=== PATIENT | male | born 1975 | race Caucasian/White ===

== ENCOUNTER 2017-10-08 19:25 | Emergency (ER) | payer BC ==
[2017-10-08 21:12] VITALS: BP 156/84
[2017-10-08] MEDS ORDERED: Cephalexin CAP* 500 MG PO ONE (21:22)
--- NOTE | 2017-10-08 21:30 | ED ---
Skin Complaint - HPI Summary HPI Summary: 42 yr old male with redness and pain to skin over left ankle area. He woke up Thursday morning and felt like he had been bitten on the anterior left ankle. He states the area has become more red. He has no lower leg, or thigh swelling or pain. No fever or chills. No trips anywhere recently. No significant family history. he is an RN and a professor training nurses. He has no pain bearing weight or with range of motion of the left ankle. - History of Current Complaint Chief Complaint: UCLowerExtremity Time Seen by Provider: 10/08/17 21:15 Stated Complaint: SKIN COMPLAINT Pain Intensity: 6 - Allergy/Home Medications Allergies/Adverse Reactions: Allergies Allergy/AdvReac Type Severity Reaction Status Date / Time No Known Allergies Allergy Verified 10/08/17 21:11 PMH/Surg Hx/FS Hx/Imm Hx Cardiovascular History: Reports: Hx Hypertension Infectious Disease History: No Infectious Disease History: Denies: Traveled Outside the [place] in Last 30 Days - Family History Known Family History: Positive: None - Social History Occupation: Employed Full-time Alcohol Use: Weekly Alcohol Amount: few times a week Substance Use Type: Reports: None Smoking Status (MU): Former Smoker Review of Systems Constitutional: Negative Eyes: Negative Positive: Other - cellulitis All Other Systems Reviewed And Are Negative: Yes Physical Exam Triage Information Reviewed: Yes Vital Signs On Initial Exam: Initial Vitals Temp Pulse Resp BP Pulse Ox 97.2 F 78 18 156/84 100 10/08/17 21:05 10/08/17 21:05 10/08/17 21:05 10/08/17 21:05 10/08/17 21:05 Vital Signs Reviewed: Yes Appearance: Positive: Well-Appearing, No Pain Distress Skin: Positive: Other - redness to skin from the mid foot to about 2 inches above the left ankle anteriorly. No ankle joint effusion, and no pain on ROM of the left ankle, and he bears weight well left leg. The patient points specifically to the area that he sensed he had the insect bite on the left anterior ankle and this was palpable. Head/Face: Positive: Normal Head/Face Inspection Eyes: Positive: EOMI Respiratory/Lung Sounds: Positive: Clear to Auscultation, Breath Sounds Present Cardiovascular: Positive: RRR. Negative: Murmur Abdomen Description: Negative: Distended Musculoskeletal: Positive: Strength/ROM Intact, Edema Left - sligth skin left foot, ankle, No left calf or thigh edema. No lymphadenopathy. Good weight bearing left foot. Neurological: Positive: Sensory/Motor Intact, CN Intact II-III Psychiatric: Positive: Normal - Libia Coma Scale Best Eye Response: 4 - Spontaneous Best Motor Response: 6 - Obeys Commands Best Verbal Response: 5 - Oriented Coma Scale Total: 15 Diagnostics - Vital Signs Vital Signs Temp Pulse Resp BP Pulse Ox 10/08/17 21:05 97.2 F 78 18 156/84 100 - Laboratory Lab Statement: Any lab studies that have been ordered have been reviewed, and results considered in the medical decision making process. Course/Dx - Course Course Of Treatment: 42 yr old with cellulitis to the left foot ankle skin area. Rx with Keflex. FU with PMD. - Diagnoses Provider Diagnoses: Cellulitis of left ankle, Bug bite Discharge - Sign-Out/Discharge Documenting (check all that apply): Discharge/Admit/Transfer - Discharge Plan Condition: Good Disposition: HOME Prescriptions: Cephalexin CAP* [Keflex CAP*] 500 mg PO QID #40 cap Patient Education Materials: Cellulitis (ED), Hypertension (ED) Referrals: Kimani Arciniega DO [Primary Care Provider] - 2 Days - Billing Disposition and Condition Condition: GOOD Disposition: Home
== END 2017-10-08 21:34 | disposition home or self-care (01) ==
LOC: UCCORT 19:25
DX: S90.562A Insect bite (nonvenomous), left ankle, initial encounter (principal); L03.116 Cellulitis of left lower limb; W57.XXXA Bitten or stung by nonvenomous insect and other nonvenomous arthropods, initial encounter; Y93.9 Activity, unspecified; Y99.9 Unspecified external cause status
CPT/HCPCS: 99202; A9270-GY; G0463

== ENCOUNTER 2019-03-28 14:30 | Emergency (ER) | payer BC ==
[2019-03-28 14:42] VITALS: BP 143/78
--- NOTE | 2019-03-28 14:45 | UC ---
Respiratory Complaint HPI - HPI Summary HPI Summary: 43-year-old male who has had head congestion and congested cough for 10 days with worsening congestion and head pressure. - History of Current Complaint Chief Complaint: UCGeneralIllness Stated Complaint: COUGH, FATIGUE, CONGESTION Time Seen by Provider: 03/28/19 14:38 Hx Obtained From: Patient Onset/Duration: Gradual Onset, Lasting Days Timing: Constant Severity Initially: Mild Severity Currently: Moderate Pain Intensity: 0 Character: Cough: Nonproductive Aggravating Factors: Deep Breaths Alleviating Factors: Nothing Associated Signs And Symptoms: Positive: Wheezing, URI, Nasal Congestion, Sinus Discomfort - Allergies/Home Medications Allergies/Adverse Reactions: Allergies Allergy/AdvReac Type Severity Reaction Status Date / Time No Known Allergies Allergy Verified 03/28/19 14:42 Home Medications: Home Medications Colchicine [Mitigare] 0.6 mg PO BID PRN 03/28/19 [History Confirmed 03/28/19] PMH/Surg Hx/FS Hx/Imm Hx Previously Healthy: Yes - Surgical History Surgical History: None - Family History Known Family History: Positive: None - Social History Occupation: Employed Full-time Alcohol Use: Weekly Alcohol Amount: few times a week Substance Use Type: None Smoking Status (MU): Former Smoker When Did the Patient Quit Smoking/Using Tobacco: 2011 Review of Systems All Other Systems Reviewed And Are Negative: Yes Constitutional: Positive: Fever - Patient had a fever in the beginning of the illness but no longer. ENT: Positive: Nasal Discharge, Sinus Congestion, Sinus Pain/Tenderness Respiratory: Positive: Cough - Occasional tight cough., Other - Mild wheezing, no history of asthma. Is Patient Immunocompromised?: No Physical Exam Triage Information Reviewed: Yes Appearance: Well-Appearing, No Pain Distress, Well-Nourished Vital Signs: Initial Vital Signs Temp 97.4 F 03/28/19 14:39 Pulse 74 03/28/19 14:39 Resp 16 03/28/19 14:39 BP 143/78 03/28/19 14:39 Pulse Ox 98 03/28/19 14:39 Vital Signs Reviewed: Yes Eyes: Positive: Conjunctiva Clear ENT: Positive: Hearing grossly normal, Pharynx normal - Yellow purulent postnasal drainage., Nasal congestion, Nasal drainage - Yellow purulent nasal coryza., TMs normal, Sinus tenderness - Mild frontal sinus tenderness., Uvula midline Neck: Positive: Supple, Nontender, No Lymphadenopathy Respiratory: Positive: No respiratory distress, No accessory muscle use, Rhonchi - Mild rhonchi left upper lobe posteriorly but with good air movement., Wheezing - Scattered mild wheezing with forced expiration. No distress. Cardiovascular: Positive: RRR, No Murmur, Pulses Normal, Brisk Capillary Refill Musculoskeletal Exam: Normal Neurological Exam: Normal Psychological Exam: Normal Skin Exam: Normal Respiratory Course/Dx - Course Course Of Treatment: I'm going to treat the patient with doxycycline for sinus infection and then an albuterol inhaler 2 puffs every 4 hours as needed for wheezing or tight cough. I'm also going to put him on a prednisone taper. He is to follow-up with his primary care provider early next week if no improvement and go to the emergency room for any worsening symptoms as the week progresses. - Differential Dx/Diagnosis Provider Diagnosis: Bronchitis, Sinusitis Discharge ED - Sign-Out/Discharge Documenting (check all that apply): Patient Departure All imaging exams completed and their final reports reviewed: No Studies - Discharge Plan Condition: Good Disposition: HOME Prescriptions: Albuterol HFA INHALER* [Ventolin HFA Inhaler*] 2 puff INH Q4H PRN 5 Days #1 mdi PRN Reason: Wheezing DOXYcycline CAP(*) [DOXYcycline 100MG CAP(*)] 100 mg PO BID 10 Days #20 cap predniSONE TAB* [Deltasone 10 MG TAB*] 10 mg PO DAILY 12 Days #30 tab Patient Education Materials: Sinusitis (ED), Acute Bronchitis (ED) Referrals: Kimani Arciniega DO [Primary Care Provider] - Additional Instructions: Increase fluids, use her albuterol inhaler 2 puffs every 4-6 hours as needed for wheezing or tight cough. No antacids, multivitamins or dairy products 2 hours before you take the doxycycline and 2 hours after you take it however take it with food. Definite follow-up with your primary care provider early next week if no improvement and to the emergency room if you develop any worsening symptoms. - Billing Disposition and Condition Condition: GOOD Disposition: Home
== END 2019-03-28 14:58 | disposition home or self-care (01) ==
LOC: UCCORT 14:30
DX: J40 Bronchitis, not specified as acute or chronic (principal); J32.9 Chronic sinusitis, unspecified; Z87.891 Personal history of nicotine dependence; R06.2 Wheezing
CPT/HCPCS: 99212; G0463